=== PATIENT | female | born 2000 | race Caucasian/White ===

== ENCOUNTER 2020-07-10 13:40 | Outpatient (REF) | payer OTHER, SELFPAY | END 2020-07-10 13:41 | disposition home or self-care (01) | LOC: HO.LAB 13:40 | PROVIDERS: Visit Provider Internal Medicine | DX: Z20.828 Contact with and (suspected) exposure to other viral communicable diseases (principal) | CPT/HCPCS: C9803; U0003 ==

== ENCOUNTER 2024-09-11 16:53 | Emergency (ER) | payer MEDICAID, SELFPAY ==
[2024-09-11 17:06] VITALS: BP 116/74; PULSE 119; RESP 18; TEMP 37.8; O2SAT 97; BMI 31.4
--- NOTE | 2024-09-11 17:16 | ED_ITS ---
HPI - General Adult General Chief complaint: Upper Respiratory Symptoms Stated complaint: URI/13 weeks preg Time Seen by Provider: 09/11/24 18:42 Source: patient Mode of arrival: ambulatory Limitations: no limitations History of Present Illness ED Provider: kandy richter np HPI narrative: Patient is a 24-year-old female LMP 06/10/2024, CRISTINA 03/20/2025 receiving care at [facility] reporting that she is currently 13 weeks presenting for evaluation of tactile fever, nonproductive cough, nausea, intermittent vomiting, diffuse lower back pain. Reports symptom onset a couple of days ago. Her children are ill with similar symptoms and have tested positive for influenza. She denies abdominal pain, no vaginal bleeding, no abnormal vaginal discharge, no dysuria, urinary frequency/urgency/hesitancy. Related Data Previous Rx's ?Medication ?Instructions ?Recorded cefuroxime axetil 250 mg tablet 250 mg PO BID #10 tabs 09/11/24 Allergies Allergy/AdvReac Type Severity Reaction Status Date / Time oxycodone Allergy Anaphylaxis Verified 09/11/24 17:07 Review of Systems Review of Systems: Yes all other systems are reviewed and are negative [facility] Past Medical History Attestation statement: The following information was validated with the patient. Source: old records reviewed Social History Social History Smoked in Last 30 Days: No Use of substances other than those prescribed or required for medical reasons: No Advance Directives: No Advance Directives Information Provided: No Patient : Yes Physical Exam ED Vital Signs: Vital Signs - 24 hr 09/11/24 17:06 09/11/24 21:51 09/11/24 22:30 Temperature 100.1 F 98.4 F Pulse Rate 119 H 106 H Respiratory Rate 18 18 Blood Pressure 116/74 144/83 H Pulse Oximetry 97 98 98 Oxygen Delivery Method Room Air Room Air Room Air 09/11/24 22:52 Temperature 98.4 F Pulse Rate 106 H Respiratory Rate 18 Blood Pressure 144/38 H Pulse Oximetry 98 Oxygen Delivery Method Room Air BMI result Body Mass Index 31.4 Appearance: Alert.?Oriented to person, place and time. No acute distress.?Normal affect. Eyes: Pupils equal, round and reactive to light.? ENT: Pharynx normal.?? Neck: Normal inspection.? Neck supple.?? CVS: Heart sounds normal. Tachycardia? Pulses normal.?? Respiratory: No respiratory distress.? Lung sounds clear to auscultation bilaterally?? Abdomen: Soft and non-tender. Normoactive bowel sounds. ??No CVAT. Skin: Skin warm and dry.? Normal skin color.? Extremities: No lower extremity edema.? No calf ttp? Neuro: Moves all extremities spontaneously. Sensation intact bilaterally. Ambulates with normal steady gait. Course Course Course Narrative: RME: 24 yold female presents to the ED for fever, coughing, nuasea, vomiting, and back pain. patient states her two children also have similiary symptoms. Patient well-appearing. patient 13 weeks . Patient denies any abdominal pain, vaginal bleeding, vaginal discharge. Medications Administered Discontinued Medications Generic Name Dose Route Start Last Admin Trade Name Freq PRN Reason Stop Dose Admin Acetaminophen 975 mg 09/11/24 17:21 09/11/24 17:23 Acetaminophen 325 Mg Tablet PO 09/11/24 17:22 975 mg ONCE ONE Administration Sodium Chloride 1,000 mls @ 999 mls/hr 09/11/24 20:15 09/11/24 21:15 Ns IV 09/11/24 21:15 Infused .Q1H1M ELIS Infusion Medical Decision Making Medical Decision Making MDM Narrative: Patient is a 24-year-old female 13 weeks presenting for evaluation of flu-like symptoms she is influenza A positive, on review of her urinalysis there is microscopic hematuria leukocyte esterase as well as urine WBCs and 4+ urine bacteria, in addition to squamous epithelial cells. It is not clear whether this is urogenital contamination versus true urinary tract infection. However given her state, treat as urinary tract infection given presence of bacteriuria follow urine culture. She additionally has ketonuria, likely secondary to dehydration from volume loss. She will receive 1 L normal saline IV fluid and reassess how she is feeling and whether her tachycardia improves. RSV/COVID-19 and group a strep testing is negative. Received 1 L normal saline IV fluid, reports feeling much improved, tachycardia improving. Requesting discharge home she is tolerating oral intake I feel this is reasonable at this time. She is advised to contact her OBGYN tomorrow to arrange for follow-up as needed. We discussed strict return precautions as well as worrisome signs and symptoms that would warrant re-evaluation emergency department. Discussed indications for use, possible side effects, indications for use in of Tamiflu, declines initiation of Tamiflu at this time. Differential Diagnosis Differential Diagnoses: The differential diagnosis associated with the presentation includes (See narrative above) Lab Data MDM Lab Attestation statement: I reviewed the patient's lab results. (See narrative above) Labs: Lab Results 09/11/24 09/11/24 Range/Units 17:27 17:42 Urine Color Dark Yellow Urine Appearance Turbid Urine pH 5.5 (5.0-9.0) Ur Specific [place] >= 1.030 H (1.005-1.025) Urine Protein 30 (1+) H (Neg-Trace) mg/dL Urine Glucose (UA) Negative (Negative) mg/dL Urine Ketones 80 (Negative) mg/dL Urine Blood Moderate (2+) H (Negative) Urine Nitrite Negative (Negative) Ur Leukocyte Esterase Small (1+) H (Negative) Urine RBC 11-20 H (0-2) /HPF Urine WBC 11-20 H (0-5) /HPF Ur Squamous Epith Cells >20 (0-2) /HPF Urine Bacteria 4+ (None Seen) Hyaline Casts 3-5 (0-2) /LPF Influenza Type A (PCR) POSITIVE A (Negative) Influenza Type B (PCR) NEGATIVE (Negative) RSV RNA Qual (PCR) NEGATIVE (Negative) SARS-CoV-2 RNA (RT-PCR) NEGATIVE (Negative) S. pyogenes GrpA TAMI Negative (Negative) Independent Historian Clinical information obtained from an independent historian. History obtained from or confirmed by: Spouse External Record Review External record reviewed: Outpatient record Discharge Plan Discharge Clinical Impression: Influenza, Urinary tract infection Patient Disposition: Home, Self-Care Instructions: Influenza (ED), Urinary Tract Infection in (ED) Additional Instructions: Be sure to rest, stay well hydrated drinking plenty of fluids, eat small frequent meals. Tylenol can be used as needed for fever/pain. Saline nasal spray, humidifier may be helpful for nasal congestion. You may return to the emergency department with any new or worsening symptoms or concerns. Follow-up with your primary care provider as needed. Your urine test today did show presence of bacteria in the urine, this may be indicative of a urinary tract infection which could result in lower back pain nausea and vomiting as well. Prescription for an antibiotic has been sent to your pharmacy. Please contact your OBGYN to arrange for a follow-up visit. Prescriptions: New cefuroxime axetil 250 mg tablet 250 mg PO BID Qty: 10 0RF Referrals: Physician,Unknown J [Primary Care Provider] - Interventions: ED Discharge Assessment Last Done: 09/11/24 22:52 Discharge Date/Time: 09/11/24 22:52 Print Language: Citizen Of [place]
[2024-09-11] MEDS: Acetaminophen 325 MG TABLET 975 MG PO (17:23)
[2024-09-11 17:52] LABS: Appearance Urine Turbid; Color Urine Dark Yellow; Glucose Urine UA Negative (Negative); Leukocyte Esterase Urine Small (1+) (Negative); Nitrite Urine Negative (Negative); PH 5.5 (5.0-9.0); Specific Gravity - Urine >= 1.030 (1.005-1.025); UMIC TRIGGER UACC YES; Urine Blood Moderate (2+) (Negative); Urine Ketones 80 mg/dL (Negative); Urine Protein 30 (1+) mg/dL (Neg-Trace)
[2024-09-11 18:08] LABS: Bacteria Urine 4+ (None Seen); Squamous Epithelial Cell Urine >20 /HPF (0-2); UACC Culture Trigger YES
[2024-09-11 18:29] LABS: IDNOW Serial# 08D9AD1C; Influenza A PCR POSITIVE (Negative); Influenza B PCR NEGATIVE (Negative); Resp Syncy Virus RNA Qual PCR NEGATIVE (Negative); SARS COV2 PCR INHOUSE NEGATIVE (Negative); Strep A Nucleic Acid Negative (Negative)
[2024-09-11] MEDS: 0.9 % Sodium Chloride 1,000 ML 999 ML IV (20:14)
[2024-09-11 21:51] VITALS: BP 144/83; PULSE 106; RESP 18; TEMP 36.9; O2SAT 98
[2024-09-11 22:30] VITALS: O2SAT 98
[2024-09-11 22:52] VITALS: BP 144/38; PULSE 106; RESP 18; TEMP 36.9; O2SAT 98
== END 2024-09-11 22:52 | disposition home or self-care (01) ==
PROVIDERS: Physician Assistant; Emergency Provider Emergency Medicine
DX: O98.511 Other viral diseases complicating pregnancy, first trimester (principal); O23.40 Unspecified infection of urinary tract in pregnancy, unspecified trimester; O21.0 Mild hyperemesis gravidarum; N39.0 Urinary tract infection, site not specified; J10.1 Influenza due to other identified influenza virus with other respiratory manifestations; Z3A.13 13 weeks gestation of pregnancy; Z03.818 Encounter for observation for suspected exposure to other biological agents ruled out
CPT/HCPCS: 0241U; 81001; 87086; 87651; 96360; 99284; 99285

== ENCOUNTER 2025-07-08 18:46 | Emergency (ER) | payer MEDICAID, SELFPAY ==
[2025-07-08 19:02] VITALS: BP 114/60; PULSE 123; RESP 20; TEMP 37.2; O2SAT 97; BMI 36.4
--- NOTE | 2025-07-08 19:02 | ED.GENADULT ---
HPI - General Adult General Chief complaint: Nausea/Vomiting/Diarrhea Stated complaint: Food poisoning? Time Seen by Provider: 07/08/25 20:12 Source: patient Mode of arrival: ambulatory Limitations: no limitations History of Present Illness ED Provider: Miguel MULLEN HPI narrative: The patient is a 25-year-old female presents to the Emergency Department with acute onset nausea, vomiting, dizziness AND HEADACHE that began this morning. She reports eating undercooked pork on ; she was the only individual who consumed the pork. She has vomited 3?4 times today, denies hematemesis, and currently denies nausea. She denies diarrhea; she had a normal, formed bowel movement this morning. She also denies dysuria and hematuria. She feels subjectively feverish but has not taken any antipyretics or antiemetics; she drank ?a little bit of PEPTO-BISMOL? without relief. Past surgical history notable for section approximately four months ago without complications. Last menstrual period was 24 June and occurred as expected. Related Data Previous Rx's ?Medication ?Instructions ?Recorded cefuroxime axetil 250 mg tablet 250 mg PO BID #10 tabs 09/11/24 ondansetron 4 mg disintegrating 4 mg PO Q8H PRN nausea and 07/08/25 tablet vomiting #14 tabs Allergies Allergy/AdvReac Type Severity Reaction Status Date / Time oxycodone Allergy Anaphylaxis Verified 07/08/25 19:04 Review of Systems Review of Systems: Yes all other systems are reviewed and are negative PMFSH Social History Social History Advance Directives: No Advance Directives Information Provided: No Do you have a plan to hurt others: No Plan Physical Exam ED Vital Signs: Vital Signs - 24 hr 07/08/25 19:02 07/08/25 20:28 07/08/25 22:07 Temperature 98.9 F 98.5 F 98.6 F Pulse Rate 123 H 121 H 113 H Respiratory Rate 20 16 16 Blood Pressure 114/60 114/70 124/63 Pulse Oximetry 97 98 97 Oxygen Delivery Method Room Air Room Air Room Air 07/09/25 00:59 07/09/25 02:19 07/09/25 02:25 Temperature 100.4 F 99.2 F 99.2 F Pulse Rate 117 H 112 H Respiratory Rate 20 Blood Pressure 110/63 106/55 L Pulse Oximetry 99 96 Oxygen Delivery Method Room Air 07/09/25 03:08 Temperature Pulse Rate 95 Respiratory Rate Blood Pressure Pulse Oximetry Oxygen Delivery Method BMI result Body Mass Index 36.4 CONSTITUTIONAL: The patient appears non-toxic, well nourished and in no acute distress. Vital signs as documented. HEAD: Atraumatic, normocephalic. EYES: EOMs grossly intact, pupils equal, conjunctiva clear, no exudate. ENT: Nares patent, no discharge. Airway patent, no audible stridor, visible mucosa is pink and moist without noted lesions. NECK: Trachea is midline, no obvious masses or gross abnormalities. CHEST: Symmetric movement, normal appearance. LUNGS: LS present and CTAB, no w/r/r. Non-labored work of breathing. CARDIAC: Regular Rhythm, S1/S2 appreciated, no murmurs, rubs or gallops. ABDOMEN: Abdomen soft and non-tender x4 quadrants, no palpable masses or organomegaly. : Deferred. EXTREMITIES: Normal tone, moves all extremities spontaneously without reported pain. No obvious acute injury or deformity noted. NEURO: Alert and oriented x3, CN II-XII appear grossly intact. Cerebellar Functioning grossly intact. No obvious sensory or motor deficits. Speech clear and appropriate. PSYCH: normal affect, appropriate eye contact, fluid speech, with appropriate response to questioning. No reported suicidality or homicidality. SKIN: Warm, dry, color appropriate, normal turgor. No rashes noted. Course Course Course Narrative: This is a Rapid Medical Examination (RME) performed by Willie Velasco PA-C in triage. Full HPI, ROS, assessment and treatment plan per primary provider in the Main ED. Hx: 25 yo F here for eval of N/V and dizziness x this morning. reports accidently eating uncooked pork x2 days ago. no one else consumed this. unable to tolerate PO at home. Plan: labs Medications Administered Discontinued Medications Generic Name Dose Route Start Last Admin Trade Name [place] PRN Reason Stop Dose Admin Acetaminophen 975 mg 07/09/25 00:52 07/09/25 00:56 Acetaminophen 325 Mg Tablet PO 07/09/25 00:53 975 mg ONCE ONE Administration Al Hydroxide/Mg Hydroxide 30 ml 07/08/25 21:22 07/08/25 21:34 Magnesium Hydrox/Alum Hydrox 30 Ml Oral.Susp PO 07/08/25 21:23 30 ml ONCE ONE Administration Famotidine 20 mg 07/08/25 21:22 07/08/25 21:34 Famotidine 20 Mg Tablet PO 07/08/25 21:23 20 mg ONCE ONE Administration Sodium Chloride 1,000 mls @ 999 mls/hr 07/08/25 21:30 07/09/25 00:21 Ns IV 07/08/25 22:30 Infused .Q1H1M ELIS Infusion Magnesium Sulfate 2 gm in 50 mls @ 25 mls/hr 07/08/25 21:22 07/08/25 23:37 Magnesium Sulfate/H2o IV 07/08/25 23:21 Infused ONCE ONE Infusion Sodium Chloride 1,000 mls @ 999 mls/hr 07/09/25 02:30 07/09/25 02:30 Ns IV 07/09/25 03:30 999 mls/hr .Q1H1M ELIS Administration Lidocaine HCl 15 ml 07/08/25 21:22 07/08/25 21:34 Lidocaine Hcl Viscous 2 % 15 Ml Solution PO 07/08/25 21:23 15 ml ONCE ONE Administration Medical Decision Making Medical Decision Making MDM Narrative: 9:26 PM 07/08/2025 (Willie MULLEN): The patient is a 25-year-old female presents to the Emergency Department with acute onset nausea, vomiting, dizziness AND HEADACHE that began this morning. She reports eating undercooked pork on ; she was the only individual who consumed the pork. She has vomited 3?4 times today, denies hematemesis, and currently denies nausea. She denies diarrhea; she had a normal, formed bowel movement this morning. She also denies dysuria and hematuria. She feels subjectively feverish but has not taken any antipyretics or antiemetics; she drank ?a little bit of PEPTO-BISMOL? without relief. Past surgical history notable for section approximately four months ago without complications. Last menstrual period was 24 June and occurred as expected. In triage patient was noted to have low magnesium, brought back to the emergency department. On exam the patient has no focal abdominal tenderness, exam is otherwise benign, no other focal findings. The patient will be treated with GI cocktail, IV fluid hydration, and magnesium supplementation. Following these interventions we will attempt p.o. challenge, if successful patient will be discharged with supportive care. 11:56 PM 07/08/2025 (Willie MULLEN): The patient has completed her GI cocktail, fluid hydration and magnesium supplementation. Patient reports she is feeling markedly improved. We will provide p.o. challenge and recheck vital signs. Pending resolution of tachycardia and successful p.o. challenge patient will be discharged with supportive care. 12:52 AM 07/09/2025 (Willie MULLEN): During discharge process the patient's vital signs revealed fever of 100.4 with improved but persistent tachycardia at 104. Patient will receive Tylenol and we will reassess. 2:26 AM 07/09/2025 (Willie MULLEN): Following Tylenol administration the patient's fever has begun to improve, down to 99.2, however patient's tachycardia persists around 114. Repeat abdominal exam still demonstrates no tenderness to palpation, no indication for CT imaging. Mucous membranes are moist, no evidence of clinical dehydration. The patient continues to deny any urinary symptoms, however given the patient's fever, nausea with vomiting, white count 14.4 which was previously thought to be acute phase reactant from vomiting, and persistent tachycardia despite fever control, we will provide additional IV fluid hydration and obtain urinalysis. 3:35 AM 07/09/2025 (Willie MULLEN): The patient's urinalysis has resulted and shows protein, greater than 20 squamous epithelial cells, and 3+ bacteria, but negative leukocyte esterase or nitrites and only 11-20 WBCs. The patient's urinalysis is more consistent with a contamination than infection. At this time following additional IV fluid hydration the patient's heart rate has improved into the low 90s, patient remains afebrile, patient will be discharged to follow up outpatient as originally planned. Lab Data 07/08/25 19:30 07/08/25 19:30 Labs: Lab Results 07/08/25 07/09/25 Range/Units 19:30 02:30 WBC 14.4 H (4.8-10.8) X10*3/uL RBC 5.16 (4.20-5.50) X10*6/uL Hgb 12.3 (12.0-16.0) g/dl Hct 39.6 (37.0-47.0) % MCV 76.7 L (80.0-98.0) fL MCH 23.8 L (27.0-33.0) pg MCHC 31.1 (31.0-35.0) g/dl RDW 15.1 (11.0-16.0) % Plt Count 278 (160-400) X10*3/uL MPV 9.9 (9.4-12.3) fL Immature Gran % (Auto) 1.5 H (0.0-0.4) % Neut % (Auto) 92.8 H (45-73) % Lymph % (Auto) 3.7 L (20-40) % [place] % (Auto) 1.8 L (2-11) % Eos % (Auto) 0.1 (0-4) % Baso % (Auto) 0.1 (0-2) % Lymph # (Auto) 0.5 L (1.2-4.9) X10*3/uL [place] # (Auto) 0.3 (0.1-1.2) X10*3/uL Eos # (Auto) 0.0 (0.0-0.4) X10*3/uL Baso # (Auto) 0.0 (0.0-0.2) X10*3/uL Abs Immat Gran (auto) 0.22 H (0.00-0.03) X10*3/uL Absolute Neuts (auto) 13.4 H (2.0-8.3) x10*3/uL Absolute Nucleated RBC 0.000 (0.0-0.012) X10*3/uL Nucleated RBC % (auto) 0.0 (0.0-0.2) /100WBC Sodium 140 (135-145) mmol/L Potassium 4.0 (3.3-5.1) mmol/L Chloride 103 (96-108) mmol/L Carbon Dioxide 27 (22-29) mmol/L Anion Gap 14 (12-20) BUN 17 H (9-16) mg/dL Creatinine 0.70 (0.5-1.4) mg/dL Estim Creat Clear Calc 116.4 Estimated GFR > 60 Random Glucose 108 (60-115) mg/dL Calcium 9.5 (8.4-10.2) mg/dL Magnesium 1.4 L* (1.6-2.6) mg/dL Total Bilirubin 0.5 (0.0-1.0) mg/dL AST 25 (5-31) U/L ALT 27 (0-31) U/L Alkaline Phosphatase 74 (39-117) U/L Total Protein 7.7 (6.5-8.0) g/dL Albumin 4.6 (3.5-5.0) g/dL Lipase 16 (8-78) U/L Beta HCG, Quant < 2 mIU/mL Urine Color Yellow Urine Appearance Turbid Urine pH 6.0 (5.0-9.0) Ur Specific [place] >= 1.030 H (1.005-1.025) Urine Protein 30 (1+) H (Neg-Trace) mg/dL Urine Glucose (UA) Negative (Negative) mg/dL Urine Ketones Negative (Negative) mg/dL Urine Blood Negative (Negative) Urine Nitrite Negative (Negative) Ur Leukocyte Esterase Negative (Negative) Urine RBC 0-2 (0-2) /HPF Urine WBC 11-20 H (0-5) /HPF Ur Squamous Epith Cells >20 (0-2) /HPF Urine Bacteria 3+ (None Seen) Hyaline Casts 0-2 (0-2) /LPF Influenza Type A (PCR) NEGATIVE (Negative) Influenza Type B (PCR) NEGATIVE (Negative) RSV RNA Qual (PCR) NEGATIVE (Negative) SARS-CoV-2 RNA (RT-PCR) NEGATIVE (Negative) Discharge Plan Discharge Clinical Impression: Gastroenteritis Patient Disposition: Home, Self-Care Instructions: Gastroenteritis (ED), Acute Nausea and Vomiting (ED) Additional Instructions: Thank you for choosing [facility]'s Emergency Department for your care today. Thankfully your laboratory evaluation today was largely reassuring. You did have a significant low magnesium which was treated with IV supplementation. The remainder of your laboratory evaluation is reassuring and your viral swabs are negative for COVID and influenza. Your urinalysis was not consistent with infection. At this time there is no indication for admission to the hospital or continued ED observation, and it is safe to discharge you home. You are likely suffering from inflammation of your gastrointestinal tract from a viral illness or exposure to uncooked food as you described. You should take alternating (staggered) doses of ibuprofen 600mg and Tylenol 1000mg every 4 hours as needed for any additional pain. Please stay well hydrated and get plenty of rest. Please take Zofran as directed as needed for additional nausea. Please consider taking a daily vitamin which contains magnesium as you have had multiple episodes of low magnesium on previous ED visits. Please follow up with your primary care physician for re-evaluation, additional management of your symptoms, and continued preventative care. If you do not have a primary care physician, please call the [facility] at [phone] to establish a new primary care physician. While waiting to establish your new primary care physician, you can call our Walk-in Care Clinic at [phone] for non-emergency needs. Please return to the emergency department if you develop a severe or sudden change in your symptoms, a fever over 100.4 that does not improve with Tylenol or Ibuprofen, recurrent vomiting, or any other new or worsening symptoms or concerns. Prescriptions: New ondansetron 4 mg tablet,disintegrating 4 mg PO Q8H PRN (Reason: nausea and vomiting) Qty: 14 0RF No Action cefuroxime axetil 250 mg tablet 250 mg PO BID Qty: 10 0RF Print Language: Slovenian
[2025-07-08 19:38] LABS: MANUAL DIFF FLAG NO
[2025-07-08 20:12] LABS: Alanine Aminotransferase 27 U/L (0-31); Albumin Level 4.6 g/dL (3.5-5.0); Alkaline Phosphatase 74 U/L (39-117); Anion Gap 14 (12-20); Aspartate Amino Transferase 25 U/L (5-31); Blood Urea Nitrogen 17 mg/dL (9-16); Calcium 9.5 mg/dL (8.4-10.2); Carbon Dioxide 27 mmol/L (22-29); Chloride 103 mmol/L (96-108); Creatinine Clr Calc Pharmacy 116.4; Estimated Glomerular Filt Rate > 60; Magnesium 1.4 mg/dL (1.6-2.6); Potassium 4.0 mmol/L (3.3-5.1); Sodium 140 mmol/L (135-145); Total Protein 7.7 g/dL (6.5-8.0)
[2025-07-08 20:20] LABS: Resp Syncy Virus RNA Qual PCR NEGATIVE (Negative); SARS COV2 PCR INHOUSE NEGATIVE (Negative)
[2025-07-08 20:28] VITALS: BP 114/70; PULSE 121; RESP 16; TEMP 36.9; O2SAT 98
--- OUTSIDE RECORDS SUMMARY | 2025-07-08 20:29 | XMS_ITS | Clinical Summary ---
Author Organization [facility] it[facility] Address [address] [place] [address] Care Team Providers Care Legal Financial Specialist Name Role Phone Unavailable Primary Care Provider Unavailabl e Social History Tobacco Use Types Packs/Day Years Used Date Smoking Tobacco: Never Assessed Comments Unknown Sex and Gender Information Value Date Recorded Sex Assigned at Not on file Legal Sex Female 10:26 AM EST Gender Identity Not on file Sexual Orientation Not on file Plan of Treatment Health Maintenance Due Date Last Done Comments DTaP,Tdap,and Td Vaccines (1 - Tdap) 2017 Hepatitis B Vaccines (1 of 3 - 19+ 3-dose series) 2017 Cervical Cancer Screening: P ap Smear 2019 HIV Screening 07/08/2022 Hepatitis C Screening 07/08/2022 Social Influencers of Health Screening 07/08/2022 Depression Screening 08/10/2024 HPV Vaccines (1 - 3-dose SCD M series) 2025 COVID-19 Vaccine (1 - 2024-2 6 season) 2025 Influenza Vaccine (#1) 2025 RSV Immunization Adult Patie nts (1 - 1-dose 75+ series) 2073 HIB Vaccines Aged Out No longer eligi ble based on patient's age to complete this topic Hepatitis A Vaccines Aged Out No long er eligible based on patient's age to complete this topic IPV Vaccines Aged Out No longer eligi ble based on patient's age to complete this topic MMR Vaccines Aged Out No longer eligi ble based on patient's age to complete this topic Meningococcal ACWY Vaccine Aged Out N o longer eligible based on patient's age to complete this topic Meningococcal B Vaccine Aged Out No l onger eligible based on patient's age to complete this topic Pneumococcal Vaccine: Pediat rics (0 to 5 Years) and At-Risk Patients (6 to 49 Years) Aged Out No longer eligible b ased on patient's age to complete this topic RSV Immunization Patients Un christiano 20 months Aged Out No longer eligible b ased on patient's age to complete this topic Varicella Vaccines Aged Out No longer eligible based on patient's age to complete this topic
[2025-07-08 20:37] LABS: Hematocrit 39.6 % (37.0-47.0); Hemoglobin 12.3 g/dl (12.0-16.0); Imm Gran Abs Auto 0.22 X10*3/uL (0.00-0.03); Imm Gran Pct Auto 1.5 % (0.0-0.4); Lymphocytes Absolute Auto 0.5 X10*3/uL (1.2-4.9); Mean Corpuscular HGB Conc 31.1 g/dl (31.0-35.0); Mean Corpuscular Hemoglobin 23.8 pg (27.0-33.0); Mean Corpuscular Volume 76.7 fL (80.0-98.0); NRBC Abs Auto 0.000 X10*3/uL (0.0-0.012); NRBC Pct Auto 0.0 /100WBC (0.0-0.2); Platelet Count 278 X10*3/uL (160-400); Red Blood Count 5.16 X10*6/uL (4.20-5.50); SCAN SMEAR FLAG 1; White Blood Count 14.4 X10*3/uL (4.8-10.8)
[2025-07-08] MEDS: Magnesium Sulfate/H2O 2 GM/50 ML PIGGYBACK IV (21:34)
[2025-07-08] MEDS: Magnesium Hydrox/Alum Hydrox 30 ML ORAL.SUSP PO (21:34)
[2025-07-08] MEDS: Lidocaine HCl Viscous 2 % 15 ML SOLUTION PO (21:34)
--- NOTE | 2025-07-08 21:42 | PC.NURSE ---
pt medicated per MAR.
[2025-07-08 22:07] VITALS: BP 124/63; PULSE 113; RESP 16; TEMP 37; O2SAT 97
[2025-07-08 22:43] LABS: Lipase 16 U/L (8-78)
--- NOTE | 2025-07-09 00:22 | PC.NURSE ---
crackers and uriah marky given to pt for PO challenge, she was able to tolerate well.
[2025-07-09 00:59] VITALS: BP 110/63; PULSE 117; RESP 20; TEMP 38; O2SAT 99
[2025-07-09 02:19] VITALS: BP 106/55; PULSE 112; TEMP 37.3; O2SAT 96
[2025-07-09 02:25] VITALS: TEMP 37.3
[2025-07-09 02:40] LABS: Appearance Urine Turbid; Glucose Urine UA Negative (Negative); PH 6.0 (5.0-9.0); Specific Gravity - Urine >= 1.030 (1.005-1.025); UMIC TRIGGER UACC YES
[2025-07-09 02:54] LABS: UACC Culture Trigger YES
[2025-07-09 03:08] VITALS: PULSE 95
[2025-07-09 04:02] VITALS: BP 105/60; PULSE 89; RESP 18; TEMP 36.6; O2SAT 96
== END 2025-07-09 04:04 | disposition home or self-care (01) ==
PROVIDERS: Physician Assistant; Physician Assistant Medical; Emergency Provider Emergency Medicine; PCP Dentist General Practice
DX: K52.9 Noninfective gastroenteritis and colitis, unspecified (principal); R11.2 Nausea with vomiting, unspecified; Z03.818 Encounter for observation for suspected exposure to other biological agents ruled out; Z79.899 Other long term (current) drug therapy
CPT/HCPCS: 36415; 80053; 81001; 83690; 83735; 84702; 85025; 87086; 87637; 96361; 96365; 96366; 99284; 99285; J3475